=== PATIENT | female | born 1960 | race Caucasian/White ===

== ENCOUNTER 2017-02-06 02:25 | Inpatient (IN) | payer OTHER ==
--- NOTE | 2017-02-06 02:36 | CPEKG ---
Heart Rate: 60 RR Interval: 1000 P-R Interval: 180 QRSD Interval: 86 QT Interval: 428 QTC Interval: 428 P [place]: 72 QRS [place]: 18 T Wave [place]: -12 EKG Severity - OTHERWISE NORMAL ECG - EKG Impression: SINUS RHYTHM EKG Impression: MINIMAL ST ELEVATION, ANTERIOR LEADS Electronically Signed By: Dalila Harp 06-Feb-2017 07:06:17
[2017-02-06] MEDS ORDERED: ASPIRIN 81 MG CHEWABLE TAB ONE (02:37)
[2017-02-06] MEDS ORDERED: ONDANSETRON 4 MG/2 ML VIAL ONE (02:37)
[2017-02-06] MEDS ORDERED: ONDANSETRON 4 MG/2 ML VIAL IVP ONE ×2 (02:43→04:39)
[2017-02-06] MEDS ORDERED: ASPIRIN 81 MG CHEWABLE TAB PO ONE (02:43)
[2017-02-06] MEDS ORDERED: KETOROLAC 15 MG/1 ML SDV ONE (03:00)
--- NOTE | 2017-02-06 03:00 | CPEKG ---
Heart Rate: 60 RR Interval: 1000 P-R Interval: 180 QRSD Interval: 88 QT Interval: 436 QTC Interval: 436 P [place]: 64 QRS [place]: 30 T Wave [place]: -5 EKG Severity - OTHERWISE NORMAL ECG - EKG Impression: SINUS RHYTHM EKG Impression: MINIMAL ST DEPRESSION, INFERIOR LEADS Electronically Signed By: Dalila Harp 06-Feb-2017 07:05:59
[2017-02-06] MEDS ORDERED: KETOROLAC 15 MG/1 ML SDV IVP ONE (03:03)
[2017-02-06 03:14] LABS: % IMMATURE GRANULYOCYTES 0.1 % (0.0-1.1); ABSOLUTE IMMATURE GRANULOCYTES 0.01 10^3/uL (0.00-0.10); ADD DIFF? NO; ADD MORPH? NO; ADD SCAN? NO; ATYPICAL LYMPHOCYTE FLAG 20 (0-99); FRAGMENT RBC FLAG 0 (0-99); HEMATOCRIT 42.6 % (38.0-47.0); HEMOGLOBIN 14.2 g/dL (12.6-16.3); LEFT SHIFT FLG 0 (0-99); LIPEMIA HEMOLYSIS FLAG 80 (0-99); MEAN CELL HEMOGLOBIN 30.1 pg (27.9-34.1); MEAN CELL HEMOGLOBIN CONCENTR. 33.3 g/dL (32.4-36.7); MEAN CELL VOLUME 90.4 fL (81.5-99.8); MEAN PLATELET VOLUME 10.5 fL (8.7-11.7); PLATELET CLUMPS FLAG 10 (0-99); PLATELET COUNT 262 10^3/uL (150-400); RED BLOOD CELL COUNT 4.71 10^6/uL (4.18-5.33); RED CELL DISTRIBUTION WIDTH 12.7 % (11.5-15.2)
[2017-02-06] MEDS ORDERED: NITROGLYCERIN 0.4 MG BTL SL ONE ×3 (03:14→03:23)
--- NOTE | 2017-02-06 03:17 | EDPHY ---
H & P Stated Complaint: cp Time Seen by Provider: 02/06/17 02:39 HPI/ROS: HPI The patient presents with chest pain which began at approximately 2:00 a.m. this morning and awoke her from sleep. It is a tight sensation that she feels in her sternum and radiates to both her left and right anterior chest. It is associated with nausea and some diaphoresis. She does not have any shortness of breath or dizziness. The pain has been constant. She has no prior history of similar pain. She was feeling well when she went to bed last night. REVIEW OF SYSTEMS Constitutional: No fever, no chills. Eyes: No discharge. ENT: No sore throat. Cardiovascular: See HPI Respiratory: No cough, no shortness of breath. Gastrointestinal: No abdominal pain, no vomiting. Genitourinary: No hematuria. Musculoskeletal: No back pain. Skin: No rashes. Neurological: No headache. PMHx: History of anxiety Soc Hx: Nonsmoker, works as an assistant prosecuting attorney FHx: Mother with a CABG at 73 PHYSICAL General Appearance: Alert, uncomfortable appearing Eyes: Pupils equal and round no pallor or injection ENT, Mouth: Mucous membranes moist Respiratory: There are no retractions, lungs are clear to auscultation Cardiovascular: Regular rate and rhythm Gastrointestinal: Abdomen is soft and non-tender, no masses, bowel sounds normal Neurological: A&O, moves all extremities Skin: Warm and dry, no rashes Musculoskeletal: Neck is supple non tender Extremities: symmetrical, full range of motion Psychiatric: Patient is oriented X 3, there is no agitation Source: Patient Exam Limitations: No limitations - Personal History Current Tetanus/Diphtheria Vaccine: Yes Current Tetanus Diphtheria and Acellular Pertussis (TDAP): Yes - Medical/Surgical History Hx Asthma: No Hx Chronic Respiratory Disease: No Hx Diabetes: No Hx Cardiac Disease: No Hx Renal Disease: No Hx Cirrhosis: No Hx Alcoholism: No Hx HIV/AIDS: No Hx Splenectomy or Spleen Trauma: No Other PMH: PANIC ATTACKS - Social History Smoking Status: Never smoked Constitutional: Initial Vital Signs Temperature (C) 36.4 C 02/06/17 02:31 Heart Rate 61 02/06/17 02:31 Respiratory Rate 16 02/06/17 02:31 Blood Pressure 138/94 H 02/06/17 02:31 O2 Sat (%) 95 02/06/17 02:31 O2 Delivery Mode Nasal Cannula O2 (L/minute) 2 Allergies/Adverse Reactions: acetaminophen [From Midol] Allergy (Verified 02/06/17 02:30) pamabrom [From Midol] Allergy (Verified 02/06/17 02:30) pyrilamine maleate [From Midol] Allergy (Verified 02/06/17 02:30) Medical Decision Making - Diagnostics EKG Interpretation: EKG: Complete interpretation has been separately recorded in the [facility] archive. Summary impression: [address] segment depressions in 2, 3, AVF, upsloping ST segment elevation in V2. This is a change from her prior EKG in 2010. Imaging Results: Chest x-ray one view shows no cardiomegaly, no effusion, interpreted by me, radiology interpretation is pending. ED Course/Re-evaluation: 4:00 a.m.- The patient has had ongoing chest pain despite treatment with morphine, nitroglycerin, GI cocktail. Because of this, in addition to her abnormal EKG, I have consulted with the on-call prepress technician Dr. Jackson. He recommends cardiac catheterization. I have explained this to the patient. 4:30 a.m.- The patient is taken to the cardiac catheterization lab. Differential Diagnosis: This is a 56-year-old female who presents with chest pain that awoke her from sleep tonight that is midsternal associated with nausea and diaphoresis. Differential diagnosis includes ACS, GERD, anxiety. - Data Points Laboratory Results: Laboratory Results 02/06/17 02:30 02/06/17 02:00 02/06/17 02/06/17 02:30 02:00 WBC 9.93 10^3/uL H 10^3/uL (3.80-9.50) RBC 4.71 10^6/uL 10^6/uL (4.18-5.33) Hgb 14.2 g/dL g/dL (12.6-16.3) Hct 42.6 % % (38.0-47.0) MCV 90.4 fL fL (81.5-99.8) MCH 30.1 pg pg (27.9-34.1) MCHC 33.3 g/dL g/dL (32.4-36.7) RDW 12.7 % % (11.5-15.2) Plt Count 262 10^3/uL 10^3/uL (150-400) MPV 10.5 fL fL (8.7-11.7) Neut % (Auto) 23.5 % L % (39.3-74.2) Lymph % (Auto) 64.9 % H % (15.0-45.0) [place] % (Auto) 8.4 % % (4.5-13.0) Eos % (Auto) 2.7 % % (0.6-7.6) Baso % (Auto) 0.4 % % (0.3-1.7) Nucleat RBC Rel Count 0.0 % % (0.0-0.2) Absolute Neuts (auto) 2.34 10^3/uL 10^3/uL (1.70-6.50) Absolute Lymphs (auto) 6.44 10^3/uL H 10^3/uL (1.00-3.00) Absolute Monos (auto) 0.83 10^3/uL H 10^3/uL (0.30-0.80) Absolute Eos (auto) 0.27 10^3/uL 10^3/uL (0.03-0.40) Absolute Basos (auto) 0.04 10^3/uL 10^3/uL (0.02-0.10) Absolute Nucleated RBC 0.00 10^3/uL 10^3/uL (0-0.01) Immature Gran % 0.1 % % (0.0-1.1) Immature Gran # 0.01 10^3/uL 10^3/uL (0.00-0.10) Sodium 144 mEq/L mEq/L (134-144) Potassium 3.4 mEq/L L mEq/L (3.5-5.2) Chloride 107 mEq/L mEq/L (97-110) Carbon Dioxide 19 mEq/l L mEq/l (22-31) Anion Gap 18 mEq/L H mEq/L (8-16) BUN 10 mg/dL mg/dL (7-23) Creatinine 0.8 mg/dL mg/dL (0.6-1.0) Estimated GFR > 60 Glucose 133 mg/dL H mg/dL (70-100) Calcium 9.8 mg/dL mg/dL (8.5-10.4) Troponin I < 0.012 ng/mL ng/mL (0-0.034) Medications Given: Discontinued Medications Al Hydroxide/Mg Hydroxide (Maalox Susp) 30 ml PO EDNOW ONE Stop: 02/06/17 03:45 Last Admin: 02/06/17 03:52 Dose: 30 ml Aspirin (Aspirin) 324 mg PO EDNOW ONE Stop: 02/06/17 02:44 Last Admin: 02/06/17 02:43 Dose: 324 mg Ketorolac Tromethamine (Toradol) 15 mg IVP EDNOW ONE Stop: 02/06/17 03:04 Last Admin: 02/06/17 03:04 Dose: 15 mg Lidocaine (Lidocaine 2% Viscous) 5 ml PO EDNOW ONE Stop: 02/06/17 03:45 Last Admin: 02/06/17 03:52 Dose: 5 ml Morphine Sulfate (Morphine) 4 mg IVP EDNOW ONE Stop: 02/06/17 02:44 Last Admin: 02/06/17 02:44 Dose: 4 mg Morphine Sulfate (Morphine) 4 mg IVP EDNOW ONE Stop: 02/06/17 04:40 Last Admin: 02/06/17 04:40 Dose: 4 mg Nitroglycerin (Nitrostat) 0.4 mg SL EDNOW ONE Stop: 02/06/17 03:17 Last Admin: 02/06/17 03:17 Dose: 0.4 mg Nitroglycerin (Nitrostat) 0.4 mg SL EDNOW ONE Stop: 02/06/17 03:24 Last Admin: 02/06/17 03:24 Dose: 0.4 mg Ondansetron HCl (Zofran) 4 mg IVP EDNOW ONE Stop: 02/06/17 02:44 Last Admin: 02/06/17 02:42 Dose: 4 mg Ondansetron HCl (Zofran) 4 mg IVP EDNOW ONE Stop: 02/06/17 04:40 Last Admin: 02/06/17 04:41 Dose: 4 mg Departure - Departure Disposition: To OP Cath/Surgery Clinical Impression: EKG abnormalities Chest pain Qualifiers: Chest pain type: unspecified Qualified Code(s): R07.9 - Chest pain, unspecified Condition: Fair
[2017-02-06 03:31] LABS: ANION GAP 18 mEq/L (8-16); CALCIUM 9.8 mg/dL (8.5-10.4); CARBON DIOXIDE 19 mEq/l (22-31); CHLORIDE 107 mEq/L (97-110); CREATININE 0.8 mg/dL (0.6-1.0); GLOMERULAR FILTRATION RATE > 60; GLUCOSE 133 mg/dL (70-100); POTASSIUM 3.4 mEq/L (3.5-5.2); SODIUM 144 mEq/L (134-144)
[2017-02-06 03:42] LABS: TROPONIN I < 0.012 ng/mL (0-0.034)
[2017-02-06] MEDS ORDERED: LIDOCAINE 2% VISCOUS 15 ML UDCUP PO ONE (03:44)
[2017-02-06] MEDS ORDERED: MAG HYDROX/AL HYDROX/SIMETH 30 ML UDCUP PO ONE (03:44)
[2017-02-06] MEDS ORDERED: LIDOCAINE 1% 300 MG/30 ML SDV ONE (04:34)
[2017-02-06] MEDS ORDERED: NITROGLYCERIN 0.4 MG BTL SL PRN ×3 (04:35→06:25)
[2017-02-06] MEDS ORDERED: IOPAMIDOL (ISOVUE-370) 150 ML BTL IV ONE ×2 (04:35→05:52)
[2017-02-06] MEDS ORDERED: MIDAZOLAM 2 MG/2 ML VIAL ONE (04:35)
[2017-02-06] MEDS ORDERED: TEMAZEPAM 15 MG CAP PO PRN ×3 (04:35→06:25)
[2017-02-06] MEDS ORDERED: fentaNYL 100 MCG/2 ML INJ ONE (04:35)
[2017-02-06] MEDS ORDERED: DIAZEPAM 5 MG TAB PO ONE ×2 (04:35)
[2017-02-06] MEDS ORDERED: ASPIRIN EC 325 MG TAB PO ONE ×3 (04:35→06:20)
[2017-02-06] MEDS ORDERED: HEPARIN 10,000 UNIT/10 ML MDV ONE (05:13)
[2017-02-06] MEDS ORDERED: VERAPAMIL 5 MG/2 ML VIAL ONE (05:13)
--- NOTE | 2017-02-06 05:27 | GHP ---
Corrected report [f rep st] GENERAL HISTORY AND PHYSICAL DATE OF ADMISSION: 02/06/2017 TIME SEEN: 4:39 in the morning. HISTORY OF PRESENT ILLNESS: The patient is a 56-year-old female, no past medical history, admitted to the emergency department early this morning with the acute onset of substernal chest pressure/pain radiating to both sides. The pain has been unrelenting. It is described as a deep discomfort. It is not made worse by breathing. It is associated with diaphoresis. It is not positional, does not radiate to the arm or jaw. Patient was seen in the emergency department. She was initially treated with standard medical therapy for pain relief. Her pain has increased in duration and severity, and I am asked to come to the hospital tonight to perform a diagnostic angiogram based on an abnormal EKG. Cardiac risk is really unremarkable. In particular, she denies smoking, hypertension, diabetes. She has no family history of early heart disease. She has no history of hyperlipidemia. PAST MEDICAL HISTORY: Really unremarkable. PAST SURGICAL HISTORY: None. FAMILY HISTORY: Negative for premature coronary disease. REVIEW OF SYSTEMS: GENERAL: Negative for fever or chills. GASTROINTESTINAL: She has had no nausea or vomiting. She has no abdominal pain, diarrhea, or constipation. GENITOURINARY: She denies dysuria. HEMATOLOGIC: She has had no history of bruising, bleeding. She has no hematemesis, melena, or hemoptysis. RESPIRATORY: She denies cough. SOCIAL HISTORY: She is a rn dialysis. Again, no significant tobacco or alcohol. When this began, she was at home, resting, sleeping. She had a vegetarian pizza at around 11 o'clock. PHYSICAL EXAMINATION: GENERAL: On my arrival, this is a very ill appearing female who is clearly in discomfort. VITAL SIGNS: Her blood pressure is 126/65 , her current heart rate is 78, respiratory rate is 16 with a room air saturation of 98%. HEENT: Conjunctivae are not injected. There was no scleral icterus. Oropharynx showed dry mucous membranes but otherwise was free of exudate. Dentition is intact. NECK: Revealed no JVP. She had no thyromegaly. I could not appreciate any adenopathy. CHEST: Clear to auscultation, percussion. Palpation of the anterior chest wall revealed no tenderness. She had no RV lift. She had a regular rate and rhythm without murmur, rub, or gallop. ABDOMEN: Soft. Bowel sounds are diminished, but present. She had no organomegaly. There was no pain to palpation. There was no rebound, no guarding. There was no suprapubic tenderness. There was no CVA tenderness. SKIN: Revealed no rash. She was not diaphoretic on my arrival. EXTREMITIES: Revealed no clubbing or cyanosis. Dorsalis pedis pulses were +2. Radial pulses were +2. Carotids were +2. Femoral artery pulses were +2. NEUROLOGIC: She is alert and oriented. She is clearly in discomfort. She has been given sedation. She is moving extremities well. Sensation grossly intact. Face is symmetric with normal speech. DATABASE: Her laboratory data reveals a white count that is elevated at 9.93. Her hemoglobin is 14.2 with a crit of 42. Her platelet count is 262,000. Her serum sodium is 144 with a potassium of 3.4. Her chloride is 107 with a bicarbonate of 19. She has an anion gap of 18. Her glucose is 133. Calcium was 9.8. Initial troponin is less than 0.012 on admission. Her EKG, first one , is at 2:26, on her arrival. This shows sinus rhythm at a rate of 60. There are inferior T-wave inversions with slight ST depression in 2, 3, and aVF. There is ST elevation in 1 and aVL consistent with a high lateral wall infarction. Chest x-ray revealed no cardiomegaly without infiltrate. IMPRESSION: A 56-year-old female, no cardiovascular risks to speak of, presenting with acute substernal chest pressure unrelieved with standard therapy , associated with EKG changes, concerning for a high lateral wall infarction with elevation of ST segments in 1 and aVL with reciprocal ST depressions 2, 3, and aVF. Initial troponin, though done quite early, was negative. Patient has ongoing symptoms, despite standard of care. RECOMMENDATIONS: For diagnostic angiogram, potential intervention. Risks and benefits of this procedure were discussed with the patient. She has no family present. We will proceed with right radial artery approach. Pending clinical result, EKG patterns like this could be seen with intraabdominal processes, though exam and initial clinical history are not consistent with that diagnosis. We will await results of cath before broadening differential. /[id number]/MODL Iesha. Report work type, 02/05/2017, ja. YULY
[2017-02-06] MEDS ORDERED: EPTIFIBATIDE 200 MG/100 ML BOTTLE IV ONE (05:32)
[2017-02-06] MEDS ORDERED: NITROGLYCERIN 1,500 MCG/15 ML VIAL MISC ONE ×2 (05:48→05:56)
[2017-02-06] MEDS ORDERED: POTASSIUM Cl (KCl) 10 MEQ/100 ML BAG IV ONE (05:59)
[2017-02-06] MEDS ORDERED: TICAGRELOR 90 MG TAB ONE (06:10)
[2017-02-06] MEDS ORDERED: ONDANSETRON 4 MG/2 ML VIAL IVP PRN (06:20)
[2017-02-06] MEDS ORDERED: LORazepam 2 MG/ML INJ IVP PRN ×2 (06:20→08:05)
[2017-02-06] MEDS ORDERED: TICAGRELOR 90 MG TAB PO ONE (06:20)
[2017-02-06] MEDS ORDERED: ATROPINE SULFATE 1 MG/10 ML SYR IVP PRN (06:20)
[2017-02-06] MEDS ORDERED: MAGNESIUM SULF 2 GM/WATER 50 ML IV ONE (06:20)
[2017-02-06] MEDS ORDERED: FUROSEMIDE 20 MG/2 ML VIAL IVP ONE (06:20)
[2017-02-06] MEDS ORDERED: NS 1,000 ML IV SCH (06:30)
--- NOTE | 2017-02-06 07:02 | CPIP ---
[f rep st] CARDIOPULMONARY INVASIVE PROCEDURE Corrected report DATE OF PROCEDURE: 02/06/2017 PROCEDURE: Left heart catheterization, coronary ventricular angiography, PCI and stenting of the LAD, PCI and stenting of the right coronary artery, intravascular ultrasound of the LAD. INDICATION: A 56-year-old female with ST-segment elevation myocardial infarction. DESCRIPTION OF PROCEDURE: After obtaining informed consent verbally, (the patient had been administered IV sedation) the patient was brought to the cardiac medical laboratory technicians emergently. The right wrist was sterilely prepped and draped. After 2% Xylocaine, a 6-Faroese radial sheath was inserted. Using a 5-Faroese SiteSeer catheter, the right coronary and left main coronary artery was selectively intubated, diagnostic coronary angiogram was performed. Following completion of the diagnostic procedure, elected to proceed with emergency PCI. Initial attempts at cannulating the left main coronary artery from the wrist were made, but failed. A 7-Faroese sheath was inserted in the right femoral artery and this approach was used for intervention. Please see below for details of the PCI report. TECHNICAL DIFFICULTIES: Inability to engage the left main coronary adequately for PCI from the right wrist. COMPLICATIONS: None. FINDINGS: Left main coronary artery is short and unobstructed. Left anterior descending artery is 100% occluded proximally. The circumflex artery is a large vessel, gives rise to the obtuse marginal branch, and is free of significant disease. The right coronary artery has 85% proximal critical stenosis with haziness. INTERVENTION NOTE: After reviewing diagnostic angiograms, it was elected to proceed with emergency PCI. The patient was anticoagulated with heparin. Therapeutic ACT was obtained. In light of thrombotic occlusion, it was elected to proceed with initiation of Integrilin; this was performed. Using a 7-Faroese JL4 guiding catheter, left main coronary selectively intubated using a 0.014 Luge wire. The LAD stenosis was crossed and wire position confirmed. Using a 2 mm balloon with a single inflation, there was establishment of antegrade flow. It was elected to proceed with stenting. There was clear mismatch between the proximal and distal vessel. A 3.0 x 20 mm synergy stent was placed across the stenosis and deployed using a single inflation. Repeat angiogram showed JOLLY grade 2 flow with a distal stenosis. The patient was administered intracoronary nitroglycerin. A 2nd 3.0 x 16 mm stent was placed across the distal lesion. It was deployed using a single inflation. The same stent balloon was used to post dilate between the 2 stents. In light of proximal nature of the lesion and JOLLY grade 2 flow, selected to proceed with intravascular ultrasound. This confirmed good stent placement without compromise distally or proximally. The proximal vessel was 4 mm in diameter. A 4 mm x 16 Quantum balloon was used to post dilate the stent. Repeat angiogram showed JOLLY grade 2 flow. A small diagonal was seen proximal with JOLLY grade 1-2 flow. At this point, it was elected to proceed with PCI of the right coronary artery for complete revascularization. Using a 7-Faroese JR4 guiding catheter, the right coronary was selectively intubated. A 0.014 Luge wire was used to cross the RCA stenosis. It was primarily stented with a 3.5 x 16 mm synergy stent. Repeat angiogram showed JOLLY grade 3 flow. At this point , it was elected to proceed with left ventricular angiography. Six-Faroese pigtail catheter was used to cross the aortic valve. Left ventricular end- diastolic pressure was measured at 30 mmHg. Left ventriculogram revealed an ejection fraction of 30% with anterior akinesis. CONCLUSION: Acute myocardial infarction with thrombotic occlusion of the LAD, status post successful PCI and stenting, confirmed by intravascular ultrasound. Successful PCI and stenting of the proximal RCA for complete revascularization. Ischemic cardiomyopathy, with ejection fraction of 30%. Patient's hemodynamics are stable, with a heart rate of 62, blood pressure 110/ 70 without support. The patient will be taken to PCU for continued care. Risk factors will be aggressively modified including assessment of A1c, fasting lipids, initiation of statin therapy, MIGUEL inhibitor, low-dose beta kayley and eplerenone. The patient will be followed up. /[id number]/MODL Iesha WT, 02/08/17, renetta EMERY
[2017-02-06] MEDS: FUROSEMIDE 20 MG/2 ML VIAL IVP SCH (08:23)
--- NOTE | 2017-02-06 08:33 | CPEKG ---
Heart Rate: 83 RR Interval: 723 P-R Interval: 168 QRSD Interval: 78 QT Interval: 396 QTC Interval: 466 P [place]: 61 QRS [place]: 68 T Wave [place]: 58 EKG Severity - ABNORMAL ECG - EKG Impression: SINUS RHYTHM EKG Impression: VENTRICULAR PREMATURE COMPLEX EKG Impression: PROBABLE ANTEROSEPTAL INFARCT, AGE INDETERM Electronically Signed By: Dima Butler 06-Feb-2017 09:00:15
[2017-02-06 10:34] LABS: HEMATOCRIT 42.5 % (38.0-47.0)
[2017-02-06 10:49] LABS: ALANINE AMINOTRANSFERASE 72 IU/L (9-52); ALBUMIN 4.2 g/dL (3.5-5.0); ALKALINE PHOSPHATASE 97 IU/L (38-126); AMYLASE < 30 IU/L (30-110); ASPARTATE AMINOTRANSFERASE 49 IU/L (14-46); BILIRUBIN,TOTAL 0.6 mg/dL (0.1-1.4); BILIRUBIN-CONJUGATED 0.5 mg/dL (0.0-0.5); BILIRUBIN-UNCONJUGATED 0.1 mg/dL (0.0-1.1); TOTAL PROTEIN 7.2 g/dL (6.3-8.2)
[2017-02-06 11:41] LABS: CK-MB INTERPRETATION POSITIVE (NEGATIVE)
[2017-02-06] MEDS: LISINOPRIL 2.5 MG TAB PO SCH (12:52)
[2017-02-06] MEDS: CARVEDILOL 3.125 MG TAB PO SCH ×2 (12:52→18:31)
[2017-02-06] MEDS: ATORVASTATIN CALCIUM 40 MG TAB PO SCH (12:53)
[2017-02-06] MEDS: POTASSIUM CL 20 MEQ TAB PO SCH (12:53)
[2017-02-06] MEDS: EPLERENONE 25 MG TAB PO SCH (12:53)
[2017-02-06 13:56] LABS: CK-MB INTERPRETATION NEGATIVE (NEGATIVE)
[2017-02-06 15:58] LABS: CHOLESTEROL 203 mg/dL (140-220); CHOLESTEROL/HDL RATIO 4.51 RATIO (1.00-4.44); HIGH DENSITY LIPOPROTEIN 45 mg/dL (40-85); LDL/HDL RATIO 2.47 RATIO (1.00-3.22); LOW DENSITY LIPOPROTEIN 111 mg/dL (80-100); NON-HIGH DENSITY LIPOPROTEIN 158 mg/dL (90-129); TRIGLYCERIDE 238 mg/dL (35-135); VERY LOW DENSITY LIPOPROTEINS 47 mg/dL (8-25)
--- NOTE | 2017-02-06 16:08 | CPEKG ---
Heart Rate: 92 RR Interval: 652 P-R Interval: 160 QRSD Interval: 90 QT Interval: 384 QTC Interval: 476 P [place]: 60 QRS [place]: 53 T Wave [place]: 63 EKG Severity - ABNORMAL ECG - EKG Impression: SINUS RHYTHM EKG Impression: ANTERIOR INFARCT, AGE INDETERMINATE Electronically Signed By: Umair Mai 07-Feb-2017 09:49:28
[2017-02-06] MEDS: ACETAMINOPHEN 325 MG TAB PO PRN ×2 (16:23→22:43)
[2017-02-06] MEDS ORDERED: IBUPROFEN 200 MG TAB PO ONE (16:30)
[2017-02-06 17:14] LABS: CK-MB INTERPRETATION NEGATIVE (NEGATIVE)
[2017-02-06] MEDS: TICAGRELOR 90 MG TAB PO SCH (18:31)
[2017-02-07] MEDS: TICAGRELOR 90 MG TAB PO SCH ×3 (00:44→20:46)
[2017-02-07 02:46] LABS: CK-MB INTERPRETATION NEGATIVE (NEGATIVE)
--- NOTE | 2017-02-07 06:21 | CPEKG ---
Heart Rate: 87 RR Interval: 690 P-R Interval: 156 QRSD Interval: 92 QT Interval: 400 QTC Interval: 482 P [place]: 54 QRS [place]: 39 T Wave [place]: 83 EKG Severity - ABNORMAL ECG - EKG Impression: SINUS RHYTHM EKG Impression: ANTERIOR INFARCT, AGE INDETERMINATE Electronically Signed By: Umair Mai 07-Feb-2017 09:49:15
--- NOTE | 2017-02-07 08:06 | PDCARPN ---
Cardiology Progress Note Chief Complaint: Mild chest discomfort noted this morning. Clear improvements in comparison to yesterday. Assessment/Plan: Assessment: Patient is a 56 y/o female with no prior cardiovascular history, with admission through ER yesterday morning with anterior STEMI. Patient was taken to the cardiac laborer pipelines and had two stents placed to proximal LAD lesions. Further critical lesion was noted to the mid RCA, but not addressed in the acute setting. Left ventricular systolic ejection fraction was moderately suppressed to 30%. Today, the patient reports that she is feeling much better, but did note some mild chest discomfort overnight. Troponins continue to elevate (29 to 39 this morning). Echocardiogram has just been completed, but is not readable (until downloaded). Plan: (1) We need to see a downward trend of the cardiac biomarkers (2) We will read the echocardiogram this morning (3) Ongoing therapy on ASA and Brilinta given the intervention performed yesterday (4) Coreg and lower dose ACEi should continue with myocardial injury noted (5) Statins to continue with HLP - will need to have reassessment of cholesterol and LFTs in 5 weeks (6) Inspra was started yesterday as well for diuretic and CHF symptoms (7) Cardiac rehab to be scheduled SHAYNE (8) Patient to remain in house overnight for monitor of telemetry and labs (9) Further discussion about intervention to the RCA in the outpatient setting are likely - if symptoms continue to be noted (chest pain/pressure), would consider secondary intervention to the RCA lesion Subjective: Fair sleep. Mild chest discomfort. Objective: Vital Signs (8 Hrs) Temp Pulse Resp BP Pulse Ox 02/07/17 04:00 36.6 C 88 16 123/72 H 91 L Intake/Output (24 Hrs) 02/06/17 02/07/17 02/08/17 05:59 05:59 05:59 Intake Total 250 Output Total 1950 Balance -1700 Intake: Oral (ml) 250 Output: Urine (ml) 1950 Bedpan 950 Toilet 1000 Other: Weight 81.647 kg Number of Voids Toilet 1 Result Diagrams: 02/06/17 Unknown 02/06/17 02:00 Cardiac Labs: Cardiac Lab Results (72 Hrs) 02/06/17 02/06/17 02/06/17 23:20 15:50 12:38 CK-MB (CK-2) Fraction 85.20 H 147.00 H 186.00 H Troponin I 39.300 H 29.200 H 35.500 H 02/06/17 10:20 CK-MB (CK-2) Fraction 206.00 H Troponin I 36.700 H Telemetry: normal sinus rhythm with rare PVCs Echocardiogram: pending download - Physical Exam Constitutional: healthy appearing, no apparent distress Eyes: PERRL, EOMI Ears, Nose, Mouth, Throat: moist mucous membranes Cardiovascular: regular rate and rhythm, no murmurs, no rubs, no gallops Peripheral Pulses: 2+: dorsalis-pedis (R), dorsalis-pedis (L) Respiratory: clear to auscultate bilat, no crackles, no wheezes Gastrointestinal: normoactive bowel sounds Skin: no rashes, no edema Musculoskeletal: no muscular tenderness Neurologic: AAOx3, CN II-XII grossly intact Psychiatric: cooperative, interactive, following commands ICD10 Worksheet Patient Problems: Problems Problem Status Onset Chest pain Acute Chest pain at rest Acute EKG abnormalities Acute ST elevation (STEMI) myocardial infarction Acute ST elevation (STEMI) myocardial infarction involving left anterior descending coronary artery Acute Status post insertion of drug-eluting stent into left anterior descending (LAD) artery Acute Status post insertion of drug-eluting stent into right coronary artery for coronary artery disease Acute
[2017-02-07] MEDS: ASPIRIN EC 81 MG TAB PO SCH (08:10)
[2017-02-07] MEDS: LISINOPRIL 2.5 MG TAB PO SCH (08:10)
[2017-02-07] MEDS: EPLERENONE 25 MG TAB PO SCH (08:10)
[2017-02-07] MEDS: CARVEDILOL 3.125 MG TAB PO SCH ×2 (08:10→17:31)
[2017-02-07] MEDS: FUROSEMIDE 20 MG/2 ML VIAL IVP SCH (08:10)
[2017-02-07] MEDS: POTASSIUM CL 20 MEQ TAB PO SCH (08:11)
[2017-02-07] MEDS: ATORVASTATIN CALCIUM 40 MG TAB PO SCH (08:11)
[2017-02-07 08:32] LABS: % IMMATURE GRANULYOCYTES 0.3 % (0.0-1.1); ABSOLUTE IMMATURE GRANULOCYTES 0.03 10^3/uL (0.00-0.10); ADD DIFF? NO; ADD MORPH? NO; ADD SCAN? NO; ATYPICAL LYMPHOCYTE FLAG 0 (0-99); FRAGMENT RBC FLAG 0 (0-99); HEMATOCRIT 41.4 % (38.0-47.0); HEMOGLOBIN 14.1 g/dL (12.6-16.3); LEFT SHIFT FLG 0 (0-99); LIPEMIA HEMOLYSIS FLAG 90 (0-99); MEAN CELL HEMOGLOBIN 30.5 pg (27.9-34.1); MEAN CELL HEMOGLOBIN CONCENTR. 34.1 g/dL (32.4-36.7); MEAN CELL VOLUME 89.4 fL (81.5-99.8); MEAN PLATELET VOLUME 10.4 fL (8.7-11.7); PLATELET CLUMPS FLAG 0 (0-99); PLATELET COUNT 213 10^3/uL (150-400); RED BLOOD CELL COUNT 4.63 10^6/uL (4.18-5.33); RED CELL DISTRIBUTION WIDTH 12.9 % (11.5-15.2)
[2017-02-07 08:39] LABS: ALBUMIN 3.9 g/dL (3.5-5.0); ANION GAP 8 mEq/L (8-16); ASPARTATE AMINOTRANSFERASE 290 IU/L (14-46); BILIRUBIN,TOTAL 1.3 mg/dL (0.1-1.4); CALCIUM 9.3 mg/dL (8.5-10.4); CARBON DIOXIDE 24 mEq/l (22-31); CHLORIDE 105 mEq/L (97-110); CREATININE 0.7 mg/dL (0.6-1.0); GLOMERULAR FILTRATION RATE > 60; GLUCOSE 124 mg/dL (70-100); MAGNESIUM 2.1 mg/dL (1.6-2.3); POTASSIUM 3.9 mEq/L (3.5-5.2); SODIUM 137 mEq/L (134-144)
[2017-02-07 09:03] LABS: LACTATE DEHYDROGENASE 2189 IU/L (313-618)
--- NOTE | 2017-02-07 11:39 | ECHO ---
[id number] + + [address] : : [place] [address] : : [phone] + + Adult Echocardiographic Report + --------+ :Name: ANDRY BLACK CStudy Date: 02/07/2017 07:34 AM : : Hospital Admission Number: [id number] Locat ion: 201: :: 1960 Gender: Female Height: 65 in : :Age: 56 yrs Race: WH Weight: 128 l b : :Reason For Study: Post CA/LV recovery : : BSA: 1.6 mete rs2 : + --------+ MMode/2D Measurements \T\ Calculations IVSd: 0.75 cm LVIDd: 4.5 cm FS: 27.4 % Ao root diam: LVPWd: 0.98 cm LVIDs: 3.3 cm EDV(Teich): 3.3 cm 94.7 ml LA dimension: ESV(Teich): 3.8 cm 44.1 ml EF(Teich): 53.4 % LVLd ap4: 7.8 cm SV(MOD-sp4): EDV(MOD-sp4): 29.0 ml 59.0 ml LVLs ap4: 6.7 cm ESV(MOD-sp4): 30.0 ml EF(MOD-sp4): 49.2 % Normal Measurement Values: + + :LVIDd (3.5-5.7cm) IVSd (0.6-1.1cm) LVPWd (0.6-1.1cm) Aortic Root (2.0-3.7cm)Left Atrium (1.5-4.0cm): :LV Vol(d) (76-115ml) LV Vol(s) (29-48ml) Ejec Fraction (50-65%)PV Gabo (0.6- 1.2m/s) TV Gabo (0.4-1.0m/s) : :MV E Gabo (0.8-1.0m/s)MV A Gabo (0.3-1.0m/s)LVOT Gabo (0.7-1.2m/s) Asc Ao Gabo ( 0.9-1.8m/s) : + + Doppler Measurements \T\ Calculations MV E max gabo: 84.4 cm/sec Ao V2 max: 95.3 cm/sec MV A max gabo: 54.3 cm/sec Ao max P.6 mmHg MV E/A: 1.6 Left Ventricle The left ventricle is normal in size. There is normal left ventricular wall thickness. EF estimate is 40-45%. LV apical septal and apex segments are akinetic. LV anterior wall appears hypokinetic. Right Ventricle The right ventricle is normal in size and function. Atria The left atrial size is normal. Right atrial size is normal. The interatrial septum is intact with no evidence for an atrial septal defect. Mitral Valve The mitral valve is normal in structure and function. There is no evidence of mitral valve prolapse. There is no mitral valve stenosis. There is mild mitral regurgitation. Tricuspid Valve Normal tricuspid valve. Aortic Valve The aortic valve opens well. There is no aortic stenosis. There is no aortic insufficiency. Pulmonic Valve The pulmonic valve is normal in structure and function. Trace pulmonic valvular regurgitation. Great Vessels The aortic root is normal size. Pericardium/Pleural There is no pericardial effusion. There is a fat pad seen. Conclusion A complete two-dimensional transthoracic echocardiogram was performed (2D, M-mode, Doppler and color flow Doppler). LV apical septal and apex segments are akinetic. LV anterior wall appears hypokinetic. EF estimate is 40-45%. There is mild mitral regurgitation. Trace pulmonic valvular regurgitation. Final Reading Physician: Teddy Hwang signed on 02/07/2017 11:38 AM Ordering Physician: MIK ARMENTA Performed By: Lizet Bedolla, LACYCS
[2017-02-07] MEDS: ACETAMINOPHEN 325 MG TAB PO PRN (11:40)
[2017-02-08] MEDS ORDERED: TICAGRELOR 90 MG TAB PO SCH
[2017-02-08] MEDS ORDERED: CARVEDILOL 3.125 MG TAB PO SCH
[2017-02-08 00:45] LABS: HEMOGLOBIN A1C 5.9 % (4.0-6.0)
[2017-02-08 07:42] VITALS: RESP 18
[2017-02-08] MEDS ORDERED: CHOLECALCIFEROL VIT D3 2,000 UNITS TAB/CAP PO SCH (09:00)
[2017-02-08] MEDS ORDERED: FUROSEMIDE 20 MG TAB PO SCH ×2 (09:15)
[2017-02-08] MEDS ORDERED: NITROGLYCERIN 0.4 MG BTL SL PRN (09:49)
[2017-02-08 10:01] LABS: ALANINE AMINOTRANSFERASE 74 IU/L (9-52); ALKALINE PHOSPHATASE 71 IU/L (38-126); ANION GAP 10 mEq/L (8-16); ASPARTATE AMINOTRANSFERASE 137 IU/L (14-46); BILIRUBIN,TOTAL 1.1 mg/dL (0.1-1.4); CALCIUM 9.7 mg/dL (8.5-10.4); CARBON DIOXIDE 21 mEq/l (22-31); CHLORIDE 105 mEq/L (97-110); CREATININE 0.8 mg/dL (0.6-1.0); GLOMERULAR FILTRATION RATE > 60; GLUCOSE 199 mg/dL (70-100); POTASSIUM 4.1 mEq/L (3.5-5.2); SODIUM 136 mEq/L (134-144); TOTAL PROTEIN 7.3 g/dL (6.3-8.2)
[2017-02-08] MEDS: EPLERENONE 25 MG TAB PO SCH (10:01)
[2017-02-08] MEDS: FUROSEMIDE 20 MG/2 ML VIAL IVP SCH (10:01)
[2017-02-08] MEDS: POTASSIUM CL 20 MEQ TAB PO SCH (10:02)
[2017-02-08] MEDS: ATORVASTATIN CALCIUM 40 MG TAB PO SCH (10:03)
[2017-02-08] MEDS: ASPIRIN EC 81 MG TAB PO SCH (10:04)
[2017-02-08] MEDS: TICAGRELOR 90 MG TAB PO SCH (10:05)
[2017-02-08] MEDS: LISINOPRIL 2.5 MG TAB PO SCH (10:05)
[2017-02-08] MEDS: CARVEDILOL 3.125 MG TAB PO SCH (10:05)
[2017-02-08 11:27] VITALS: BP 93/70; PULSE 79; TEMP 97.9; O2SAT 91
--- NOTE | 2017-02-08 22:30 | GDS ---
[f rep st] DISCHARGE SUMMARY ADMISSION DIAGNOSES: 1. Chest pain. 2. Abnormal electrocardiogram. DISCHARGE DIAGNOSES: 1. ST-elevated myocardial infarction. 2. Status post percutaneous coronary intervention of the left anterior descending artery with a 3.0 x 20 Synergy EMIL, and a 3.0 x 16 Synergy EMIL. 3. Percutaneous coronary intervention of the right coronary artery, with placement of a 3.5 x 16 Sy nergy EMIL. 4. Ischemic cardiomyopathy. 5. Hyperlipidemia. PROCEDURES: Done during this hospitalization: 1. Electrocardiogram. 2. Chest x-ray. 3. Diagnostic coronary catheterization. 4. Percutaneous coronary intervention of the LAD, with a 3.0 x 20 and a 3.0 x 16 Synergy EMIL. 5. Percutaneous intervention of the right coronary artery, with a 3.5 x 16 drug-eluting Synergy rosibel nt. 6. Echocardiogram. BRIEF HISTORY: Please see history and physical. The patient is a 56-year-old female, with no signi ficant cardiovascular history. She reports on the morning of February 06 of being woken up in middle of night with midsternal chest pressure. This concerned her greatly, and she went to the [facility] for further evaluation. HOSPITAL COURSE: Once admitted to the emergency department, laboratory studies were drawn. She was noted to have a normal troponin on admission, but electrocardiogram did show ST-elevation in candice lateral leads, with reciprocal changes in inferior leads. Cardiology consultation was done. Dr. Damien green evaluated patient, and took her emergently to the cardiac catheterization lab. There, she un derwent a diagnostic coronary catheterization. Initial coronary angiogram was done via the right wr ist approach. Initial diagnostic pictures were attempted via the right wrist radial approach, but u nable to intubate the left main catheter. A 7-Tongan sheath was placed through the right femoral ar lon. The findings on angiogram showed left main was short and non-obstructed. Left anterior desce nding artery was 100% occluded proximally. The circumflex artery was large, gives rise to the obtus e marginal, and is free of any significant disease. The right coronary artery had an 85% proximal c ritical stenosis with haziness. At that point, it was decided to switch over to percutaneous coronary intervention. There, Dr. Vladimir byrnes successfully implanted a 3.0 x 20 Synergy stent. Patient remained with JOLLY grade 2 flow dista l to the stenosis, and a second stent was placed with a 3.0 x 16 Synergy stent distal to the proxima l stent. The patient continued to have JOLLY 2 flow, and, at that point, it was decided to proceed w ith intravascular ultrasound, which showed good stent deployment, without compromised distal or prox imal flow. At that point, Dr. Jackson used a 4.0 x 16 Quantum balloon to post dilate the stent, re peated angiograms after NC balloon dilation of the stent showed continuation of JOLLY 2 flow. It was also noted, a small diagonal branch proximal had JOLLY grade 1 flow. At that point, it was decided to proceed on to the percutaneous coronary intervention of the right c oronary artery, which he successfully dilated, and placed a 3.5 x 16 Synergy stent into the 85% sten osis. Post procedure, noted to have JOLLY 3 flow. At that point, LV gram was done showing an EF of 30%, with anterior akinesis. The patient was taken to the PCU for continuous monitoring. She was started on dual antiplatelet th erapy of aspirin and Brilinta. She was started on beta kayley with carvedilol, and MIGUEL inhibitor o f lisinopril. The following day, she had an echocardiogram done showing LV apical septal and apical segments that were akinetic. LV anterior wall was hypokinetic, but EF had improved to 40% to 45%. Mild MR. Trace OH. The patient was tolerating new medications, and Inspra was added to her medica tion regimen. She was also started on IV Lasix. Today, patient reports no chest pain or pressure. Her shortness of breath has improved significantl y. She has been up and walking the unit without any difficulties. Continuous cardiac monitoring sh owing sinus rhythm, with rare premature ventricular contraction. PHYSICAL EXAMINATION: GENERAL APPEARANCE: Exam today, mildly obese female. She is alert and oriented to person, place, time, and situation, appears to be under no acute distress. VITAL S IGNS: Current vital signs are blood pressure of 93/70, heart rate is 79, saturating 94% on room air . Temperature of 36.6 degrees Celsius. HEENT: Head is normocephalic. Lips and tongue are pink an d moist, with no signs of cyanosis. Conjunctivae pink. NECK: Trachea is midline. Carotid pulses +2 bilateral. No auscultated bruits. No jugular vein distention. RESPIRATORY: Lungs clear to aus cultation. No rhonchi, rales or wheezes. No accessory muscle use. Intercostal muscle retraction n oted. CARDIAC: Regular rate, regular rhythm. S1, S2. No S3, S4, rubs, gallops or murmurs noted. ABDOMEN: Soft, nontender. Bowel sounds x4 quadrants. No organomegaly. No palpable masses. SKIN : [employer], warm, dry. No cyanosis. No clubbing. No peripheral edema. VASCULAR: Carotids +2 bilate ral, +2 radials bilateral. Dorsal pedal and posterior tibial pulses bilateral. Catheter insertion site, right groin site, with no redness, swelling, drainage, ecchymosis, or hematoma. No auscultate d bruit. Right radial catheter insertion site, with no redness, swelling, drainage, ecchymosis or h ematoma. LABORATORY STUDIES: Laboratory studies February 07: CBC showed WBC of 9.29, hemoglobin of 14.1, rachelle tocrit of 41.4, platelet count 213. Today, sodium was 136, potassium 4.1, chloride 105, CO2 21, BUN 11, creatinine 0.8, glucose 98, calcium 9.7. Total bilirubin 1.1, AST 137, ALT 74; note, day after PCI, AST up to 290, coming down. Troponin level today was 19.0. BNP 1560. Total protein 7.3, alb umin 4.0. Note, troponin peaked on February 06 to 39.30. CK peaked on February 06 on day of admission at 4659, CK-MB 206.0, CK-MB fraction 4.40. Fasting lipid panel done on February 06 shows total choles terol of 203, LDL 111, HDL 45, triglycerides 238. Initial electrocardiogram, as mentioned above. Diagnostic heart catheterization, as mentioned above. Intervention, as mentioned above. Echocardiogram, as mentioned above. Electrocardiogram done on February 07, 2017, shows sinus rhythm, with Q waves noted in V1 through V3, an terior infarction. Chest x-ray on admission showed no acute pulmonary disease. DISCHARGE DISPOSITION: Patient will be discharged home in fair condition. She is under activity re striction of not lifting more than 10 pounds for the next week, and no strenuous activity for the ne xt 2 weeks. DISCHARGE MEDICATIONS: Please see discharge medication reconciliation sheet. Not,e patient has bee n started on aspirin 81 mg p.o. daily, atorvastatin 80 mg p.o. daily, carvedilol 3.125 mg p.o. twice daily, Inspra 25 mg p.o. daily, Lasix 20 mg p.o. daily, lisinopril 2.5 mg p.o. daily, nitroglycerin 0.4 mg sublingual q.5 minutes p.r.n. chest pain, Brilinta 90 mg p.o. twice daily. DISCHARGE INSTRUCTIONS: Post percutaneous coronary intervention discharge instructions and myocardi al infarction discharge instructions went over with the patient including activity restrictions, dri ving restrictions, she should not drive until she follows up with her PCP, monitoring for signs of i nfection, and the importance of medication compliance, especially dual antiplatelet therapy with 3 D ES implantation done. At the time of discharge, medications went over with the patient. She verbal izes understanding. Patient reports no questions at the time of discharge. I have called [facility], who will get the patient in to be seen in 2 weeks. I have asked for a sooner date, but at is the first available. They have informed me that if she follows up with her PCP, and they deem her necessary to see Cardiology sooner, they can get her in. She has called her PCP, and has an ap pointment to see them in the morning. The patient has been told that if she has any problems or con cerns once discharged, she may call our office or return to the hospital. I would like her to have a repeated basic metabolic panel done on of this week. She will also need to have a fastin g lipid and liver panel done in 6-8 weeks after starting atorvastatin. TOTAL TIME SPENT ON DISCHARGE: Greater than 30 minutes. /[id number]/MODL
== END 2017-02-08 17:00 | disposition home or self-care (01) | DRG 247 ==
LOC: OBSVTOIN 06:24 → F2W 06:45
PROVIDERS: ADMIT Internal Medicine Interventional Cardiology; ATTEND Internal Medicine Cardiovascular Disease
PROC: B240ZZ3 Ultrasonography of Single Coronary Artery, Intravascular (ICD-10-PCS; principal; 2017-02-06)
PROC: 4A023N7 Measurement of Cardiac Sampling and Pressure, Left Heart, Percutaneous Approach (ICD-10-PCS; principal; 2017-02-06)
PROC: B2151ZZ Fluoroscopy of Left Heart using Low Osmolar Contrast (ICD-10-PCS; principal; 2017-02-06)
PROC: B2111ZZ Fluoroscopy of Multiple Coronary Arteries using Low Osmolar Contrast (ICD-10-PCS; principal; 2017-02-06)
PROC: 027136Z Dilation of Coronary Artery, Two Arteries with Three Drug-eluting Intraluminal Devices, Percutaneous Approach (ICD-10-PCS; 2017-02-06)
PROC: B246ZZZ Ultrasonography of Right and Left Heart (ICD-10-PCS; 2017-02-07)
DX: I21.09 ST elevation (STEMI) myocardial infarction involving other coronary artery of anterior wall (principal); I25.110 Atherosclerotic heart disease of native coronary artery with unstable angina pectoris; I25.5 Ischemic cardiomyopathy; E78.5 Hyperlipidemia, unspecified; F41.9 Anxiety disorder, unspecified; Z82.49 Family history of ischemic heart disease and other diseases of the circulatory system
CPT/HCPCS: 96374; C1725; C1753; C1760; C1769; C1874; C1887; C9600; C9606; J1327; J1644; J1885; J1940; J2060; J2250; J2405; J3010; Q9967

== ENCOUNTER → 2017-07-01 | Outpatient (CLI) | payer OTHER | LOC: FIMAGING 07:34 | PROVIDERS: ATTEND Internal Medicine | DX: Z12.31 Encounter for screening mammogram for malignant neoplasm of breast (principal) | CPT/HCPCS: G0202 ==

== ENCOUNTER → 2018-05-18 | Outpatient (CLI) | payer OTHER | LOC: FIMAGING 12:04 | PROVIDERS: ATTEND Internal Medicine | DX: N63.11 Unspecified lump in the right breast, upper outer quadrant (principal) ==